=== PATIENT | female | born 1990 ===

== ENCOUNTER 2020-10-28 09:30 | Inpatient (IN) | payer OTHER ==
[~2020-10-28] VITALS: Ht 162.6 cm; Wt 3.2 kg
[2020-10-28] MEDS ORDERED: FOLIC A PO (11:53)
[2020-11-04] MEDS ORDERED: FOLIC ACID0.8 M1 PO (08:47)
== END 2020-11-06 15:26 | disposition home or self-care (01) | DRG 788 ==
LOC: O/R 11-03 09:03 → OB/GYN 11-03 09:03
PROVIDERS: ADMIT Obstetrics & Gynecology; ATTEND Obstetrics & Gynecology
PROC: 4A1HXFZ Monitoring of Products of Conception, Cardiac Rhythm, External Approach (ICD-10-PCS; 2020-11-03)
PROC: 10D00Z1 Extraction of Products of Conception, Low, Open Approach (ICD-10-PCS; principal; 2020-11-03 13:45)
DX: O64.1XX0 Obstructed labor due to breech presentation, not applicable or unspecified (principal); O99.824 Streptococcus B carrier state complicating childbirth; Z3A.39 39 weeks gestation of pregnancy; Z37.0 Single live birth